=== PATIENT | female | born 1970 | race Caucasian/White ===

== ENCOUNTER 2019-03-09 10:03 | Day surgery (SDC) | payer OTHER, MEDICAID ==
[~2019-03-09 10:03] MED LIST: ROCURONIUM 50 MG INJ
[2019-03-09] MEDS ORDERED: ROPIVACAINE 0.5 % 30 ML VIAL (11:29)
[2019-03-09] MEDS ORDERED: ROCURONIUM 50 MG INJ (11:29)
[2019-03-09] MEDS ORDERED: ONDANSETRON 4 MG INJ (11:29)
[2019-03-09] MEDS ORDERED: FENTAnyl 50 MCG/ML VIAL (11:29)
[2019-03-09] MEDS ORDERED: MIDAZOLAM 1 MG/ML 2 ML INJ (11:29)
[2019-03-09] MEDS ORDERED: PROPOFOL 20 ML (11:29)
[2019-03-09] MEDS ORDERED: METOCLOPRAMIDE 10 MG INJ (11:29)
[2019-03-09] MEDS ORDERED: CEFAZOLIN 1 GM INJ ×2 (11:29→16:25)
[2019-03-09] MEDS ORDERED: POLYMYXIN/BACITRACIN 1L IRRIG (13:58)
[2019-03-09] MEDS ORDERED: EPHEDrine 50 MG INJ (14:06)
[2019-03-09] MEDS ORDERED: SUCCINYLCHOLINE CHLORIDE 100 MG/5 ML SYG IV (14:06)
[2019-03-09] MEDS: POLYMYXIN/BACITRACIN 1L IRRIG (14:19)
[2019-03-09] MEDS: NEOMYC/POLYMYX/BACIT 30 GM OINT (14:20)
[2019-03-09] MEDS ORDERED: GLYCOPYRROLATE 0.4 MG INJ (16:09)
[2019-03-09] MEDS ORDERED: NEOSTIGMINE 3 MG/3 ML SYRINGE (16:09)
[2019-03-09] MEDS ORDERED: IPRATROPIUM (NEB) 0.5 MG/2.5 ML AMP HHN (16:30)
[2019-03-09] MEDS ORDERED: hydrALAzine 20 MG INJ IV (16:30)
[2019-03-09] MEDS ORDERED: FENTAnyl 50 MCG/ML VIAL IV ×3 (16:30)
[2019-03-09] MEDS ORDERED: LABETALOL HCL 20MG INJ IV (16:30)
[2019-03-09] MEDS ORDERED: MEPERIDINE 25 MG INJ IV (16:30)
[2019-03-09] MEDS ORDERED: HYDROmorphONE 1 MG/5 ML IV SYRINGE IV ×3 (16:30)
[2019-03-09] MEDS ORDERED: OXYCODONE/ACETAMINOPHEN (5/325) TAB PO ×2 (16:30)
[2019-03-09] MEDS ORDERED: ALBUTEROL 0.083% (NEB) 2.5 MG/3 ML AMP HHN (16:30)
[2019-03-09] MEDS ORDERED: ONDANSETRON 4 MG INJ IV (16:30)
[2019-03-09] MEDS ORDERED: DIPHENHYDRAMINE 50 MG INJ IV (16:30)
[2019-03-09] MEDS ORDERED: morphine 2 MG INJ IV (18:00)
[2019-03-09] MEDS ORDERED: KETOROLAC 30 MG INJ IV (18:00)
== END 2019-03-09 18:35 | disposition home or self-care (01) ==
LOC: SDS 10:03
DX: M19.071 Primary osteoarthritis, right ankle and foot (principal); E11.9 Type 2 diabetes mellitus without complications
CPT/HCPCS: 27870; 73610-RT; 82306; 82962; 84703